=== PATIENT | male | born 1985 | race Caucasian/White ===

== ENCOUNTER 2021-07-02 13:43 | Observation (INO) ==
[2021-07-02 15:01] LABS: Hemoglobin 15.3 g/dL (12.9-16.9); Immature Granulocytes % 0.2 % (0-4); Mean Platelet Volume 8.5 fL (9.4-12.4); Red Cell Distribution Width 11.8 % (11.5-14.5)
[2021-07-02 15:03] LABS: Basophils % 0.7 %; Eosinophils # 0.6 K/mcL (0.0-0.6); Hematocrit 44.4 % (37.5-50.1); Lymphocytes # 1.7 K/mcL (0.6-4.6); Lymphocytes % 27.3 %; Mean Corpuscular HGB Conc 34.5 g/dL (31.6-35.5); Mean Corpuscular Hemoglobin 33.4 pg (28.0-33.3); Mean Corpuscular Volume 96.9 fL (83.0-100.0); Monocytes # 0.7 K/mcL (0.0-1.3); Monocytes % 11.8 %; Neutrophils # 3.1 K/mcL (1.6-8.9); Platelet Count 188 K/mcL (140-400); Red Blood Count 4.58 M/mcL (4.19-5.50); White Blood Count 6.1 K/mcL (4.3-11.1)
[2021-07-02 15:11] LABS: INR 1.2; Prothrombin Time 13.4 Seconds (9.4-12.1)
[2021-07-02 15:14] LABS: Activated Partial Thrombo Time 37.7 Seconds (26.0-36.0)
[2021-07-02] MEDS ORDERED: Aspirin 325 MG TABLET PO ONE (15:29)
[2021-07-02] MEDS ORDERED: Perflutren Lipid Microsphere 1.3 ML in 0.9 % Sodium Chloride 8.7 ML IVP PRN (15:37)
[2021-07-02] MEDS ORDERED: Ondansetron 4 MG/2 ML VIAL IVP PRN (15:38)
[2021-07-02] MEDS ORDERED: Naloxone 0.4 MG/ML INJ IVP PRN (15:38)
[2021-07-02 15:48] LABS: BUN/Creatinine Ratio 9 (6-26); Blood Urea Nitrogen 10 mg/dL (6-20); Calcium 9.5 mg/dL (8.6-10.3); Carbon Dioxide 25 mEq/L (23-29); Chloride 106 mEq/L (98-107); Glucose 105 mg/dL (70-105); Osmolality,Calculated 289 (280-300); Potassium 3.6 mEq/L (3.5-5.1); Sodium 140 mEq/L (136-145); Troponin I < 0.03 ng/mL (< 0.04); eGFR For African Americans > 60 (> 60); eGFR For Non-African Americans > 60 (> 60)
[2021-07-02] MEDS ORDERED: D5% in Water 1,000 ML IVC PRN (16:40)
[2021-07-02] MEDS ORDERED: *HR* Dextrose 50 % in Water (Syg) 50 ML SYRINGE IVP PRN (16:40)
[2021-07-02] MEDS ORDERED: Dextrose Gel 15 GM/37.5 ML TUBE PO PRN ×2 (16:40)
[2021-07-02] MEDS: PROTEASE PO SCH (20:17)
[2021-07-02] MEDS: DORNASE ALFA 1 MG/ML IH SCH (20:17)
[2021-07-02] MEDS: AMYLASE PO SCH (20:17)
[2021-07-02] MEDS: LIPASE PO SCH (20:17)
[2021-07-02] MEDS: *HR* Heparin 5,000 UNIT/ML VIAL SQ SCH ×2 (20:17→23:00)
[2021-07-02] MEDS ORDERED: Famotidine 20 MG TABLET PO SCH (21:00)
[2021-07-02] MEDS ORDERED: Insulin LISPRO 300 UNITS/3 ML VIAL SUBQ SCH (21:00)
[2021-07-02] MEDS ORDERED: [UNRECOGNIZED DRUG - OTHER] PO SCH (21:00)
[2021-07-02] MEDS ORDERED: Loratadine 10 MG TABLET PO SCH (21:00)
[2021-07-03 05:12] LABS: Basophils % 0.5 %; Eosinophils # 0.4 K/mcL (0.0-0.6); Eosinophils % 6.4 %; Hematocrit 40.9 % (37.5-50.1); Hemoglobin 14.4 g/dL (12.9-16.9); Immature Granulocytes % 0.3 % (0-4); Lymphocytes # 1.5 K/mcL (0.6-4.6); Lymphocytes % 23.6 %; Mean Corpuscular HGB Conc 35.2 g/dL (31.6-35.5); Mean Corpuscular Hemoglobin 33.7 pg (28.0-33.3); Mean Corpuscular Volume 95.8 fL (83.0-100.0); Mean Platelet Volume 8.5 fL (9.4-12.4); Monocytes # 0.7 K/mcL (0.0-1.3); Monocytes % 11.3 %; Neutrophils # 3.7 K/mcL (1.6-8.9); Platelet Count 162 K/mcL (140-400); Red Blood Count 4.27 M/mcL (4.19-5.50); Red Cell Distribution Width 11.9 % (11.5-14.5); Segmented Neutrophils % 57.9 %; White Blood Count 6.4 K/mcL (4.3-11.1)
[2021-07-03 05:22] LABS: BUN/Creatinine Ratio 9 (6-26); Blood Urea Nitrogen 10 mg/dL (6-20); Calcium 9.2 mg/dL (8.6-10.3); Carbon Dioxide 26 mEq/L (23-29); Chloride 110 mEq/L (98-107); Chol/HDL Ratio 1.9 (0-4.9); Cholesterol 65 mg/dL (< 200); Glucose 89 mg/dL (70-105); HDL Cholesterol 34 mg/dL (40-59); LDL Cholesterol,Calculated 18 mg/dL (< 100); Magnesium 1.7 mg/dL (1.6-2.6); Osmolality,Calculated 295 (280-300); Potassium 3.7 mEq/L (3.5-5.1); Sodium 143 mEq/L (136-145); Triglycerides 67 mg/dL (< 150); eGFR For African Americans > 60 (> 60); eGFR For Non-African Americans > 60 (> 60)
[2021-07-03 07:21] VITALS: TEMP 98.3; O2SAT 95
[2021-07-03] MEDS: DORNASE ALFA 1 MG/ML IH SCH (07:48)
[2021-07-03] MEDS: AMYLASE PO SCH ×2 (07:48→12:05)
[2021-07-03] MEDS: LIPASE PO SCH ×2 (07:48→12:05)
[2021-07-03] MEDS: PROTEASE PO SCH ×2 (07:48→12:05)
[2021-07-03] MEDS: Insulin LISPRO 300 UNITS/3 ML VIAL SUBQ SCH ×2 (07:48→12:05)
[2021-07-03] MEDS ORDERED: Aspirin 81 MG TAB.CHEW PO SCH (09:00)
[2021-07-03] MEDS ORDERED: allopurinoL 300 MG TABLET PO SCH (09:00)
[2021-07-03] MEDS ORDERED: amLODIPine 5 MG TABLET PO SCH (09:00)
[2021-07-03] MEDS ORDERED: [UNRECOGNIZED DRUG - OTHER] PO SCH (09:00)
[2021-07-03] MEDS ORDERED: 0.9 % Sodium Chloride 1,000 ML ONE (09:56)
[2021-07-03] MEDS ORDERED: Nitroglycerin 1,000 MCG/5 ML VIAL IV ONE (09:57)
[2021-07-03] MEDS ORDERED: Heparin 1,000 UNITS/500 mL 500 ML ONE (09:57)
[2021-07-03] MEDS ORDERED: *HR* Heparin 10,000 UNIT/10 ML VIAL ONE (09:57)
[2021-07-03] MEDS ORDERED: ISOVUE-370 200 ML INFUS..BTL ONE (09:57)
[2021-07-03] MEDS ORDERED: *HR* Midazolam HCl 2 MG/2 ML VIAL ONE (10:18)
[2021-07-03] MEDS ORDERED: *HR* FentaNYL (PF) 100 MCG/2 ML VIAL ONE (10:18)
[2021-07-03] MEDS ORDERED: 0.9 % Sodium Chloride 1,000 ML IVC SCH (11:30)
[2021-07-03] MEDS: *HR* Heparin 5,000 UNIT/ML VIAL SQ SCH (13:14)
[2021-07-03 14:15] VITALS: BP 102/68; PULSE 68
[2021-07-03] MEDS ORDERED: [UNRECOGNIZED DRUG - OTHER] AER SCH (15:00)
[2021-07-04] MEDS ORDERED: Azithromycin 250 MG TABLET PO SCH (09:00)
== END 2021-07-03 14:39 | disposition home or self-care (01) ==
LOC: 3BNU 13:43 → EMEROOARM 13:43 → 3BNU 17:44
PROVIDERS: ADMIT General Practice; ATTEND General Practice